=== PATIENT | male | born 1965 | race Two or more races ===

== ENCOUNTER 2017-11-22 09:03 | Outpatient (CLI) | payer OTHER ==
[~2017-11-22 09:03] MED LIST: COUMADIN4 MG
== END 2017-11-22 09:20 | disposition home or self-care (01) ==
LOC: NUCLEAR 09:03
DX: I87.2 Venous insufficiency (chronic) (peripheral) (principal); I80.293 Phlebitis and thrombophlebitis of other deep vessels of lower extremity, bilateral; I70.213 Atherosclerosis of native arteries of extremities with intermittent claudication, bilateral legs; Z79.01 Long term (current) use of anticoagulants; G47.33 Obstructive sleep apnea (adult) (pediatric); R12 Heartburn; Z68.36 Body mass index [BMI] 36.0-36.9, adult; E03.8 Other specified hypothyroidism

== ENCOUNTER 2018-07-03 13:52 | Outpatient (CLI) | payer OTHER | END 2018-07-03 14:43 | disposition home or self-care (01) | LOC: MRI 13:52 | DX: M25.561 Pain in right knee (principal); I87.2 Venous insufficiency (chronic) (peripheral); I80.293 Phlebitis and thrombophlebitis of other deep vessels of lower extremity, bilateral; I70.213 Atherosclerosis of native arteries of extremities with intermittent claudication, bilateral legs; Z79.01 Long term (current) use of anticoagulants; G47.33 Obstructive sleep apnea (adult) (pediatric); E53.8 Deficiency of other specified B group vitamins; E55.9 Vitamin D deficiency, unspecified; R12 Heartburn | CPT/HCPCS: 73721 ==

== ENCOUNTER 2020-04-02 09:41 | Outpatient (CLI) | payer OTHER | END 2020-04-02 09:51 | disposition home or self-care (01) | LOC: NUCLEAR 09:41 | PROVIDERS: ATTEND Internal Medicine Hematology & Oncology | DX: I82.531 Chronic embolism and thrombosis of right popliteal vein (principal); I80.221 Phlebitis and thrombophlebitis of right popliteal vein; D51.3 Other dietary vitamin B12 deficiency anemia; I73.9 Peripheral vascular disease, unspecified; E55.9 Vitamin D deficiency, unspecified; A49.2 Hemophilus influenzae infection, unspecified site ==

== ENCOUNTER 2020-07-10 15:36 | Emergency (ER) | payer OTHER ==
[~2020-07-10] VITALS: Ht 170.2 cm; Wt 100.7 kg
[2020-07-10] MEDS ORDERED: TESALON (16:17)
[2020-07-10] MEDS ORDERED: [UNRECOGNIZED DRUG - OTHER] (16:17)
== END 2020-07-10 20:41 | disposition home or self-care (01) ==
LOC: ER 15:36
DX: U07.1 COVID-19 (principal); R06.02 Shortness of breath; R05 Cough

== ENCOUNTER → 2021-03-27 | Emergency (ER) | payer OTHER ==
[~2021-03-27] VITALS: Ht 170.2 cm; Wt 100.2 kg
[~2021-03-27] MED LIST changes: +ATORVASTATIN CA10 MG PO; +ECOTRIN81 MG PO; +PENTOXIFYLLINE400 MG PO; +TESALON; +[UNRECOGNIZED DRUG - OTHER]
== END | disposition home or self-care (01) ==
LOC: ER 14:48
DX: L03.116 Cellulitis of left lower limb (principal); I87.2 Venous insufficiency (chronic) (peripheral); M79.662 Pain in left lower leg

== ENCOUNTER 2021-03-28 08:43 | Emergency (ER) | payer OTHER ==
[~2021-03-28] VITALS: Ht 170.2 cm; Wt 99.8 kg
== END 2021-03-28 11:05 | disposition home or self-care (01) ==
LOC: ER 08:43
DX: M79.662 Pain in left lower leg (principal)

== ENCOUNTER 2021-07-13 08:58 | Outpatient (CLI) | payer OTHER | END 2021-07-13 08:59 | disposition home or self-care (01) | LOC: NUCLEAR 08:58 | PROVIDERS: ATTEND Internal Medicine | DX: I87.2 Venous insufficiency (chronic) (peripheral) (principal); M25.561 Pain in right knee; M25.562 Pain in left knee; I70.213 Atherosclerosis of native arteries of extremities with intermittent claudication, bilateral legs; M12.862 Other specific arthropathies, not elsewhere classified, left knee ==

== ENCOUNTER 2024-03-20 08:38 | Outpatient (CLI) | payer OTHER | END 2024-03-20 08:39 | disposition home or self-care (01) | LOC: NUCLEAR 08:38 | PROVIDERS: ATTEND Internal Medicine Hematology & Oncology | DX: I82.531 Chronic embolism and thrombosis of right popliteal vein (principal); I73.9 Peripheral vascular disease, unspecified; D72.818 Other decreased white blood cell count; E55.9 Vitamin D deficiency, unspecified; D51.3 Other dietary vitamin B12 deficiency anemia; G47.33 Obstructive sleep apnea (adult) (pediatric); I25.10 Atherosclerotic heart disease of native coronary artery without angina pectoris ==

== ENCOUNTER 2024-03-24 10:12 | Emergency (ER) | payer OTHER ==
[~2024-03-24] VITALS: Ht 170.2 cm; Wt 95.7 kg
[2024-03-24] MEDS ORDERED: ELIQUIS2.5 MG (10:48)
[2024-03-24] MEDS ORDERED: KETOROLAC TROMETHAMINE 60 MG VIAL IM ONE ×2 (11:10→11:15)
[2024-03-24] MEDS ORDERED: FAMOTIDINE/PF 20 MG/2 ML VIAL ONE (11:10)
[2024-03-24] MEDS ORDERED: FAMOtidine 10 MG/ML (4ML VIAL) IV ONE (11:15)
[2024-03-24] MEDS ORDERED: 0.9 % SODIUM CHLORIDE 1,000 ML IV ONE (11:15)
[2024-03-24 11:39] LABS: HEMATOCRIT 43.9 % (39.0-48.0); HEMOGLOBIN 15.2 g/dL (13-16.00); MEAN CELL VOLUME 93.5 fL (80.0-100.00); MEAN CORPUSCULAR HEMOGLOBIN 32.3 pg (27.00-32.0); MEAN CORPUSCULAR HGB CONC 34.5 g/dl (32.0-36.0); PLATELET COUNT 191 K/uL (150-450); RED BLOOD COUNT 4.69 M/uL (4.00-6.00); RED CELL DISTRIBUTION WIDTH 13.8 % (11.5-14.5)
[2024-03-24 11:51] LABS: PH,URINE 5.5 (5.0-8.0); URINE APPEARANCE Clear; URINE BILIRRUBIN Negative (NEGATIVE); URINE BLOOD Negative; URINE COLOR Yellow; URINE GLUCOSE Negative (NEGATIVE); URINE KETONE Negative (NEGATIVE); URINE LEUKOCYTE Negative; URINE NITRATE Negative; URINE PROTEIN Negative (NEGATIVE)
[2024-03-24 11:54] LABS: URINE RBC 5.3 uL (0.0-20.8)
[2024-03-24 12:07] LABS: URINE BACTERIA 2.5 uL (0.0-1933); URINE EPITHELIAL CELLS 1.3 uL (0.0-38.8); URINE WBC 1.3 uL (0.0-23.2)
[2024-03-24 12:09] LABS: INR 1.04; PARTIAL THROMBOPLASTIN TIME 26.5 SECONDS (22.0-34.0); PROTHROMBIN TIME 11.3 SECONDS (9.0-11.5)
[2024-03-24 12:48] LABS: ALBUMIN 2.5 gm/dL (3.4-5.0); BILIRUBIN TOTAL 0.93 mg/dL (0.3-1.2); CREATININE SERUM 0.42 mg/dL (0.70-1.30); GFR 210.34; GLOBULINA 2.5 G/DL (2.4-3.5)
[2024-03-24 12:56] LABS: CALCIUM 5.8 mg/dL (8.5-10.1); POTASSIUM 2.81 mEq/L (3.5-5.1)
[2024-03-24 14:33] LABS: ALBUMIN 2.8 gm/dL (3.4-5.0); BILIRUBIN TOTAL 1.07 mg/dL (0.3-1.2); BILIRUBIN,CONJUGATED 0.28 mg/dL (0.0-0.2); BILIRUBIN,UNCONJUGATED 0.79 mg/dL (0.0-0.6); CALCIUM 6.7 mg/dL (8.5-10.1); CREATININE SERUM 0.47 mg/dL (0.70-1.30); GFR 184.74; GLOBULINA 2.4 G/DL (2.4-3.5); POTASSIUM 3.55 mEq/L (3.5-5.1); TOTAL PROTEIN 5.2 gm/dL (6.4-8.2)
== END 2024-03-24 20:09 | disposition home or self-care (01) ==
LOC: ER 10:13
PROVIDERS: General Practice
DX: E86.0 Dehydration (principal); R10.9 Unspecified abdominal pain
CPT/HCPCS: 36415; 74177; 96365; 96372; 99284; J1885 ×2; J3490; J7030; Q9965

== ENCOUNTER 2024-08-08 13:23 | Outpatient (CLI) | payer OTHER ==
[~2024-08-08 13:23] MED LIST changes: +ELIQUIS2.5 MG
== END 2024-08-08 13:27 | disposition home or self-care (01) ==
LOC: NUCLEAR 13:23
PROVIDERS: ATTEND Internal Medicine
DX: I87.2 Venous insufficiency (chronic) (peripheral) (principal)

== ENCOUNTER 2024-08-10 19:40 | Emergency (ER) | payer OTHER ==
[~2024-08-10] VITALS: Ht 170.2 cm; Wt 89.8 kg
[2024-08-10 22:28] LABS: HEMATOCRIT 46.3 % (39.0-48.0); HEMOGLOBIN 15.8 g/dL (13-16.00); MEAN CELL VOLUME 93.3 fL (80.0-100.00); MEAN CORPUSCULAR HEMOGLOBIN 31.8 pg (27.00-32.0); MEAN CORPUSCULAR HGB CONC 34.1 g/dl (32.0-36.0); PLATELET COUNT 199 K/uL (150-450); RED BLOOD COUNT 4.96 M/uL (4.00-6.00); RED CELL DISTRIBUTION WIDTH 14.1 % (11.5-14.5)
[2024-08-10 22:49] LABS: CALCIUM 9.9 mg/dL (8.5-10.1); CREATININE SERUM 1.2 mg/dL (0.70-1.30); GFR 62.4; POTASSIUM 4.29 mEq/L (3.5-5.1)
== END 2024-08-11 00:28 | disposition home or self-care (01) ==
LOC: ER 19:42
PROVIDERS: General Practice
DX: S29.8XXA Other specified injuries of thorax, initial encounter (principal); W18.39XA Other fall on same level, initial encounter; Y93.89 Activity, other specified; Y92.89 Other specified places as the place of occurrence of the external cause; S49.82XA Other specified injuries of left shoulder and upper arm, initial encounter

== ENCOUNTER 2025-06-22 11:39 | Emergency (ER) | payer OTHER ==
[~2025-06-22] VITALS: Ht 170.2 cm; Wt 88.0 kg
[2025-06-22 12:20] VITALS: BP 136/81; O2SAT 97
[2025-06-22] MEDS ORDERED: METHYLPREDNISOLONE SOD SUCC 125 MG VIAL IV ONE (13:30)
[2025-06-22] MEDS ORDERED: CEPHALEXIN 500 MG CAPSULE PO ONE (13:30)
[2025-06-22] MEDS ORDERED: ACYCLOVIR 800 MG TABLET PO ONE (13:30)
[2025-06-22] MEDS ORDERED: DIPHENHYDRAMINE HCL 50 MG/ML VIAL 1ML IM ONE (13:30)
[2025-06-22 16:40] LABS: BASO % 0.2 % (0.1-1.2); EOS # 0.12 (0.04-0.54); EOS % 2.5 % (0.7-7.0); LYMPH # 0.66 (1.18-3.74); LYMPH % 14.0 % (19.3-53.1); MEAN PLATELET VOLUME 9.80 fl (9.4-12.4); MONO # 0.55 (0.24-0.82); MONO % 11.7 % (4.7-12.5); NEUT # 3.36 (1.56-6.13); NEUT % 71.2 % (34.0-71.1); RED CELL DISTRIBUTION WIDTH 12.3 % (11.6-14.4)
[2025-06-22 16:42] LABS: ERYTHROCYTE SEDIMENTATION RATE 16 mm/hr (0-20)
[2025-06-22 17:12] LABS: ALT/SGPT 21.0 U/L (12-78); AST/SGOT 15.0 U/L (15-37); BILIRUBIN TOTAL 1.27 mg/dL (0.3-1.2); BUN CREA RATIO 15.0 (7.0-25.0); CREATININE SERUM 1.27 mg/dL (0.70-1.30); GFR 58.25; GLOBULINA 4.6 G/DL (2.4-3.5); GLUCOSE FASTING 101.0 mg/dL (65-100); OSMOLALITY SERUM 287.0 MOSM/KG (275-295)
[2025-06-22] MEDS ORDERED: ZOVIRAX800 MG PO (19:22)
[2025-06-22] MEDS ORDERED: NEURONTIN300 MG PO (19:22)
[2025-06-22] MEDS ORDERED: ZOVIRAX5 GM TOP (19:22)
== END 2025-06-22 19:31 | disposition home or self-care (01) ==
LOC: ER 11:40
PROVIDERS: Student in an Organized Health Care Education/Training Program
DX: B02.9 Zoster without complications (principal)
CPT/HCPCS: 36415; 96365; 96372; 99282; J1200